=== PATIENT | male | born 1980 | race Caucasian/White ===

== ENCOUNTER 2016-05-15 07:40 | Day surgery (SDC) | payer OTHER ==
[~2016-05-15 07:40] MED LIST: Bupivacaine 0.5%/EPINEPHrine 1:200,000 50 ML MDV ONE; Lidocaine 1% with EPINEPHrine 1:100,000 20 ML MDV ONE; Lidocaine 1%/Sod Bicarbonate in NS 8.4% 1 ML Syringe PRN; Sodium Chloride 0.9% 10 ML Syringe FLUSH PRN
[2016-05-15] MEDS: Lactated Ringers 1,000 ML IV SCH ×2 (08:00→11:44)
--- NOTE | 2016-05-15 08:27 | PCM.PREANE ---
Preanesthetic Assessment - Anesthesia/Transfusion/Family Hx Anesthesia History: Prior Anesthesia Without Reaction Family History of Anesthesia Reaction: No Transfusion History: No Prior Transfusion(s) - Review of Systems General: No Symptoms Pulmonary: No Symptoms Cardiovascular: No Symptoms Gastrointestinal: No symptoms Neurological: No Symptoms Other: Reports: None - Physical Assessment NPO Status Date: 05/14/16 NPO Status Time: 22:00 O2 Sat by Pulse Oximetry: 97 Respiratory Rate: 16 Vital Signs: Last Vital Signs Temp 97.5 F 05/15/16 07:55 Pulse 60 05/15/16 07:55 Resp 16 05/15/16 07:55 BP 146/85 H 05/15/16 07:55 Pulse Ox 97 05/15/16 07:55 Height: 6 ft 4 in Weight: 122.016 kg ASA Class: 2 Mental Status: Alert & Oriented x3 Airway Class: Mallampati = 1 Dentition: Reports: Normal Dentition Thyro-Mental Finger Breadths: 3 Mouth Opening Finger Breadths: 3 ROM/Head Extension: Full Lungs: Clear to auscultation, Normal respiratory effort Cardiovascular: Regular Rate, Regular Rhythm, No Murmurs - Allergies Allergies/Adverse Reactions: Allergies Allergy/AdvReac Type Severity Reaction Status Date / Time animal dander Allergy Other Verified 05/15/16 08:16 - Blood Blood Available: No - Acknowledgements Anesthesia Type Planned: General Anesthesia Pt an Appropriate Candidate for the Planned Anesthesia: Yes Alternatives and Risks of Anesthesia Discussed w Pt/Guardian: Yes Pt/Guardian Understands and Agrees with Anesthesia Plan: Yes PreAnesthesia Questionnaire HEENT History: Reports: None Respiratory History: Reports: Other (see below) Other Respiratory History: pharyngitis Gastrointestinal History: Reports: GERD, Other (see below) Other Gastrointestinal History: abdominal pain, gallbladder colic, nausea, stomach ulcer RATE SETTER History: Reports: None Neurological History: Reports: None Psychiatric History: Reports: None Endocrine/Metabolic History: Reports: None, Obesity/BMI 30+ Hematologic History: Reports: None Immunologic History: Reports: None Oncologic (Cancer) History: Reports: None Dermatologic History: Reports: Other (see below) Other Dermatologic History: sebaceous cyst - Past Surgical History Head Surgeries/Procedures: Reports: None HEENT Surgical History: Reports: Oral surgery GI Surgical History: Reports: EGD Male Surgical History: Reports: Vasectomy Musculoskeletal Surgical History: Reports: Arthroscopic knee, Other (see below) Other Musculoskeletal Surgeries/Procedures:: R knee acl repair - SUBSTANCE USE Smoking Status *Q: Former Smoker Tobacco Use Within Last Twelve Months: Snuff/Dip Second Hand Smoke Exposure: No Days Per Week of Alcohol Use: 3 Number of Drinks Per Day: 4 (beer) Total Drinks Per Week: 12 Recreational Drug Use History: No - HOME MEDS Home Medications: Home Meds Esomeprazole Magnesium [Nexium] 20 mg PO DAILY 05/12/16 [History] Hydrocodone/Acetaminophen [Hydrocodon-Acetaminophen 5-325] 1 tab PO TID PRN 08/21 [History] Ondansetron [Ondansetron ODT] 4 mg PO TID PRN 05/12/16 [History] - CURRENT (IN HOUSE) MEDS Current Meds: Current Medications Lactated Ringer's (Ringers, Lactated) 1,000 mls @ 125 mls/hr IV ASDIRECTED EDYTA Stop: 05/15/16 23:00 Last Admin: 05/15/16 08:00 Dose: 125 mls/hr Lidocaine/Sodium Bicarbonate (Buffered Lidocaine 1% In Ns 8.4%) 0.25 ml .XX ONETIME PRN PRN Reason: Prior to IV Start Stop: 05/15/16 18:00 Last Admin: 05/15/16 08:00 Dose: 0.25 ml Sodium Chloride (Saline Flush) 10 ml FLUSH ASDIRECTED PRN PRN Reason: Keep Vein Open Stop: 05/15/16 18:00 Discontinued Medications Bupivacaine HCl/Epinephrine Bitart (Marcaine 0.5%/Epinephrine 1:200,000) Confirm Administered Dose 50 ml .ROUTE .STK-MED ONE Stop: 05/15/16 07:39 Lidocaine/Epinephrine (Xylocaine 1% With Epinephrine 1:100,000) Confirm Administered Dose 20 ml .ROUTE .STK-MED ONE Stop: 05/15/16 07:38 Preanesthetic Assessment - PHYSICAL ASSESSMENT O2 Sat by Pulse Oximetry: 97 RR: 16 Vital Signs: Last Vital Signs Temp 97.5 F 05/15/16 07:55 Pulse 60 05/15/16 07:55 Resp 16 05/15/16 07:55 BP 146/85 H 05/15/16 07:55 Pulse Ox 97 05/15/16 07:55 Height: 6 ft 4 in Weight: 122.016 kg NPO Status Date: 05/14/16 NPO Status Time: 22:00 - ALLERGIES Allergies/Adverse Reactions: Allergies Allergy/AdvReac Type Severity Reaction Status Date / Time animal dander Allergy Other Verified 05/15/16 08:16
[2016-05-15] MEDS ORDERED: Propofol 200 MG/20 ML SDV ONE (09:14)
[2016-05-15] MEDS ORDERED: Midazolam 1 MG/ML 2 ML SDV ONE ×2 (09:14→09:40)
[2016-05-15] MEDS ORDERED: fentaNYL 100 MCG/2 ML SDV ONE ×2 (09:14→10:38)
[2016-05-15] MEDS ORDERED: ceFAZolin 1 GM Vial ONE ×2 (09:15→09:35)
[2016-05-15] MEDS ORDERED: Rocuronium 50 MG/5 ML Vial ONE ×2 (09:15→10:19)
[2016-05-15] MEDS ORDERED: Lidocaine 1% 8 ML ONE (09:15)
[2016-05-15] MEDS ORDERED: Ondansetron 4 MG/2 ML SDV ONE (09:15)
[2016-05-15] MEDS ORDERED: HYDROmorphone 1 MG/ML Syringe ONE (09:30)
[2016-05-15] MEDS ORDERED: Lactated Ringers 1,000 ML ONE (10:12)
[2016-05-15] MEDS ORDERED: Glycopyrrolate 0.2 MG/ML 2 ML SDV ONE (10:45)
[2016-05-15] MEDS ORDERED: Neostigmine Methylsulfate 10 MG/10 ML MDV ONE (10:45)
--- NOTE | 2016-05-15 11:06 | PCM.OPNOTE ---
- General Post-Op/Procedure Note Date of Surgery/Procedure: 05/15/16 Operative Procedure(s): laparoscopic cholecystectomy Findings: chronic inflammation of the gall bladder Pre Op Diagnosis: biliary colic Post-Op Diagnosis: chronic cholecystitis Anesthesia Technique: General ET tube, Local Primary Surgeon: Vic Mesa Pathology: gall bladder EBL in mLs: 2 Complications: None Condition: Good Free Text/Narrative:: After adequate general endotracheal tube anesthesia was obtained the patient's abdomen was prepped and draped sterilely for a laparoscopic cholecystectomy. After local analgesia was given a supraumbilical incision was made, down to the fascia. The fascia was opened in the midline, followed by cannulation with a 12 mm camera port. CO2 pneumoperitoneum was obtained. Exploration revealed a slightly intrahepatic gallbladder with a large amount of fat around the neck of the gallbladder. There were chronic inflammatory changes throughout the neck and pouch of the gallbladder. 3 working ports were placed along the costal margin. All 5 mm in size. the gallbladder was grasped and was retracted in a cephalad direction along with liver. I grasped Jessica's pouch then dissected out. The cystic duct and cystic artery. These structures were clipped in continuity and divided with Endo May. The gallbladder was taken down in a retrograde fashion, and placed in a specimen bag and removed through the umbilicus. I irrigated out. The gallbladder bed. There was no obvious bowel or bile duct injury. He was decannulated under direct vision. The camera port site was closed with a [id number] Vicryl. The subcutaneous tissues and skin were closed with Vicryl as well. Steri-Strips and gauze were used for the dressing. There were no complications.
[2016-05-15] MEDS: fentaNYL 100 MCG/2 ML SDV IVPUSH PRN ×2 (11:09→11:20)
[2016-05-15] MEDS: HYDROmorphone 0.5 MG/0.5 ML Syringe IVPUSH PRN ×2 (11:11→11:27)
[2016-05-15] MEDS ORDERED: Ketorolac 30 MG/ML SDV IVPUSH SCH (11:15)
--- NOTE | 2016-05-15 11:15 | PCM.POSTAN ---
POST ANESTHESIA ASSESSMENT - MENTAL STATUS Mental Status: oriented, somnolent - VITAL SIGNS Pulse Rate: 76 SaO2: 95 Resp Rate: 8 Blood Pressure: 134/90 Temperature: 36.6 C - RESPIRATORY Respiratory Status: respiratory rate WNL (was 8 on PACU admission, then 11-12 after a few minutes), airway patent, O2 saturation stable - CARDIOVASCULAR CV Status: pulse rate WNL, blood pressure stable - GASTROINTESTINAL GI Status: no symptoms - PAIN Pain Score: 6 - POST OP HYDRATION Hydration Status: adequate & stable
--- NOTE | 2016-05-15 12:16 | PCM48HPAN ---
Post Anesthesia Note - EVALUATION WITHIN 48HRS OF ANESTHETIC Vital Signs in Normal Range: Yes Patient Participated in Evaluation: Yes Respiratory Function Stable: Yes Airway Patent: Yes Cardiovascular Function Stable: Yes Hydration Status Stable: Yes Pain Control Satisfactory: Yes Nausea and Vomiting Control Satisfactory: Yes Mental Status Recovered: Yes
[2016-05-15] MEDS ORDERED: Acetaminophen/oxyCODONE 325-5 MG Tab PO ONE (13:20)
[2016-05-15 13:28] VITALS: BP 128/79
== END 2016-05-15 13:40 | disposition home or self-care (01) ==
LOC: JD.SDS 07:40
PROVIDERS: ATTEND Surgery
DX: K81.1 Chronic cholecystitis (principal); K21.9 Gastro-esophageal reflux disease without esophagitis; Z98.890 Other specified postprocedural states
CPT/HCPCS: 47562; 88304; A9270; J0690; J1170; J1885; J2250; J2405; J2710; J3010; J7120; 00790; J2704; J3490

== ENCOUNTER 2018-05-22 07:25 | Day surgery (SDC) | payer OTHER ==
[~2018-05-22 07:25] MED LIST changes: -Bupivacaine 0.5%/EPINEPHrine 1:200,000 50 ML MDV ONE; +Lactated Ringers 1,000 ML IV SCH; -Lidocaine 1% with EPINEPHrine 1:100,000 20 ML MDV ONE; +Lidocaine 1%/Sod Bicarbonate in NS 8.4% 1 ML Syringe IDERM PRN; -Lidocaine 1%/Sod Bicarbonate in NS 8.4% 1 ML Syringe PRN
[2018-05-22] MEDS ORDERED: Propofol 200 MG/20 ML SDV ONE ×2 (07:26→08:36)
[2018-05-22] MEDS ORDERED: Lidocaine 1% 6 ML ONE (07:26)
[2018-05-22] MEDS ORDERED: fentaNYL 100 MCG/2 ML SDV ONE (07:27)
--- NOTE | 2018-05-22 07:50 | PCM.PREANE ---
Preanesthetic Assessment - Anesthesia/Transfusion/Family Hx Anesthesia History: Prior Anesthesia Without Reaction Family History of Anesthesia Reaction: No Transfusion History: No Prior Transfusion(s) Intubation History: Unknown - Review of Systems General: No Symptoms Pulmonary: No Symptoms (No chewing tobacco for 2 months/ETOH: occasionally) Cardiovascular: No Symptoms, Chest Pain (epigastric pain), Palpitations Gastrointestinal: No Symptoms (GERD/History of Jem's esophagus/? hiatal hernia) Neurological: Dizziness (associated with anxiety), Headache (history of migraines when younger) Other: Reports: Anxiety - Physical Assessment NPO Status Date: 05/21/18 NPO Status Time: 21:30 Pulse: 67 O2 Sat by Pulse Oximetry: 95 Respiratory Rate: 16 Blood Pressure: 145/88 Temperature: 36.3 C Height: 1.93 m Weight: 122.47 kg ASA Class: 2 Mental Status: Alert & Oriented x3 Airway Class: Mallampati = 2 Dentition: Reports: Normal Dentition, Caries Thyro-Mental Finger Breadths: 3 Mouth Opening Finger Breadths: 3 ROM/Head Extension: Full Lungs: Clear to Auscultation, Normal Respiratory Effort Cardiovascular: Regular Rate, Regular Rhythm, No Murmurs - Allergies Allergies/Adverse Reactions: Allergies Allergy/AdvReac Type Severity Reaction Status Date / Time animal dander Allergy Other Verified 05/21/18 13:36 - Anesthesia Plan Pre-Op Medication Ordered: None - Acknowledgements Anesthesia Type Planned: MAC Pt an Appropriate Candidate for the Planned Anesthesia: Yes Alternatives and Risks of Anesthesia Discussed w Pt/Guardian: Yes Pt/Guardian Understands and Agrees with Anesthesia Plan: Yes PreAnesthesia Questionnaire HEENT History: Reports: Other (See Below) Other HEENT History: pharyngitis Cardiovascular History: Reports: Angina Respiratory History: Reports: Other (See Below) Other Respiratory History: pharyngitis Gastrointestinal History: Reports: GERD, Other (See Below) Other Gastrointestinal History: abdominal pain, gallbladder colic, nausea, stomach ulcer, Bowen's esophagus Genitourinary History: Reports: None WRAPPER STEMMER HAND History: Reports: None Musculoskeletal History: Reports: None Neurological History: Reports: None, Other (See Below) Other Neuro History: dizziness Psychiatric History: Reports: Anxiety Endocrine/Metabolic History: Reports: None, Obesity/BMI 30+ Hematologic History: Reports: None Immunologic History: Reports: None Oncologic (Cancer) History: Reports: None Dermatologic History: Reports: Other (See Below) Other Dermatologic History: sebaceous cyst - Past Surgical History Head Surgeries/Procedures: Reports: None HEENT Surgical History: Reports: Oral Surgery Respiratory Surgical History: Reports: None GI Surgical History: Reports: Cholecystectomy, EGD Female Surgical History: Reports: None Male Surgical History: Reports: Vasectomy Musculoskeletal Surgical History: Reports: Arthroscopic Knee, Other (See Below) Other Musculoskeletal Surgeries/Procedures:: R knee acl repair Oncologic Surgical History: Reports: None - SUBSTANCE USE Smoking Status *Q: Former Smoker Recreational Drug Use History: No - HOME MEDS Home Medications: Home Meds ALPRAZolam [Alprazolam] 0.25 mg PO BID PRN 05/21/18 [History] Omeprazole 40 mg PO BID 05/21/18 [History] Sertraline HCl 50 mg PO DAILY 05/21/18 [History] Sucralfate 1 gm PO QID PRN 05/21/18 [History] - CURRENT (IN HOUSE) MEDS Current Meds: Current Medications Lactated Ringer's (Ringers, Lactated) 1,000 mls @ 125 mls/hr IV ASDIRECTED EDYTA Stop: 05/22/18 18:00 Lidocaine/Sodium Bicarbonate (Buffered Lidocaine 1% In Ns 8.4%) 0.25 ml IDERM ONETIME PRN PRN Reason: Prior to IV Start Stop: 05/22/18 18:00 Sodium Chloride (Saline Flush) 10 ml FLUSH ASDIRECTED PRN PRN Reason: Keep Vein Open Stop: 05/22/18 18:00 Discontinued Medications Fentanyl (Sublimaze) Confirm Administered Dose 100 mcg .ROUTE .STK-MED ONE Stop: 05/22/18 07:28 Lidocaine HCl (Xylocaine-Mpf 1%) Confirm Administered Dose 6 mls @ as directed .ROUTE .STK-MED ONE Stop: 05/22/18 07:27 Propofol (Diprivan 20 Ml) Confirm Administered Dose 200 mg .ROUTE .STK-MED ONE Stop: 05/22/18 07:27
[2018-05-22 09:47] VITALS: BP 124/83
--- NOTE | 2018-05-22 16:01 | OR ---
DATE OF OPERATION: 05/22/2018 SURGEON: Mario Grayson MD PREOPERATIVE DIAGNOSIS: History of Bowen's esophagus. POSTOPERATIVE DIAGNOSIS: Bowen's esophagus and a sliding hiatal hernia. OPERATION PERFORMED: Esophagogastroduodenoscopy and biopsy. FINDINGS: He appears to have a short-segment Bowen's with an irregular Z-line consisting of salmon-pink mucosa. There were no mucosal erosions. He also has a patulous GE junction with a sliding hiatal hernia, which was fairly small. PATHOLOGY: GE junction. ANESTHESIA: Procedural sedation. COMPLICATIONS: None. ESTIMATED BLOOD LOSS: Minimal. DISPOSITION: Stable at the end of the procedure. INDICATION: Christ has not had a scope for 5 years. He has continued to complain of reflux, though he says it has improved since he stopped chewing. On his last scope, he was not found to have Bowen's esophagus. That being said on the previous scope, he was found to have Bowen's esophagus, so I do wonder if maybe it was simply missed on his previous exam. The patient was offered surveillance. He was fully informed of the major risks of the procedure. These include, but are not limited to perforation of the GE junction, bleeding, recurrent surgery, and many others. He gave informed consent for what was done. DESCRIPTION OF PROCEDURE: Christ was brought to the gastro suite and placed in the left lateral decubitus position. The bite block was placed. He was given procedural sedation. The scope was introduced in the proximal esophagus and advanced past the cricopharyngeus muscle, keeping the lumen in view at all times with gentle forward pressure, identified an irregular GE junction with salmon-pink mucosa consistent with Bowen's. I passed the scope into the stomach and then flexed the scope into the 4th portion of the duodenum. I found no ulcerations in the duodenum. I retroflexed scope, the GE junction and found a patulous GE junction with a sliding hiatal hernia. The mucosa of the stomach appears unremarkable. I withdrew the scope into the GE junction and then biopsied circumferentially at least 6 biopsies at the area of pink mucosa to look for dysplasia. I then advanced the scope into the stomach evacuating the stomach of its contents and then withdrew the scope back into the esophagus. The remainder of his esophagus was surveyed. No mucosal lesions were identified. At the end of the procedure, the scope was withdrawn. He had no complications and tolerated the procedure well with minimal blood loss. I should note that prior to withdrawing the scope, I did inspect the areas of biopsy, and they were clearly no longer bleeding. As the scope was withdrawn, he was awakened from anesthesia and moved to recovery in stable condition. PLAN: I will see him in my office at the end of the month to review the pathology. DANICA /[id number]
== END 2018-05-22 09:23 | disposition home or self-care (01) ==
LOC: JD.SDS 07:25
PROVIDERS: ATTEND Surgery
DX: K22.70 Barrett's esophagus without dysplasia (principal); K44.9 Diaphragmatic hernia without obstruction or gangrene; K21.0 Gastro-esophageal reflux disease with esophagitis; K22.8 Other specified diseases of esophagus; F41.9 Anxiety disorder, unspecified; Z87.891 Personal history of nicotine dependence; Z91.09 Other allergy status, other than to drugs and biological substances; Z79.899 Other long term (current) drug therapy
CPT/HCPCS: 43239; J2001; J2704; J3010; J7120; 00731